=== PATIENT | female | born 1985 | race African-American/Black ===

== ENCOUNTER 2016-12-18 03:54 | Emergency (ER) | payer MEDICAID ==
[~2016-12-18] VITALS: Ht 154.9 cm; Wt 117.0 kg
[~2016-12-18 03:54] MED LIST: MEC25T PO
[2016-12-18 06:12] VITALS: BP 150/95
== END 2016-12-18 07:01 | disposition home or self-care (01) ==
LOC: ER 03:54
DX: M94.0 Chondrocostal junction syndrome [Tietze] (principal); F41.9 Anxiety disorder, unspecified; Z79.899 Other long term (current) drug therapy
CPT/HCPCS: 71020; 81025; 93005

== ENCOUNTER 2016-12-30 14:34 | Emergency (ER) | payer MEDICAID ==
[~2016-12-30] VITALS: Ht 152.4 cm; Wt 127.0 kg
[2016-12-30] MEDS ORDERED: MECLIZINE HCL 25 MG TAB PO ONE (15:30)
[2016-12-30 15:31] LABS: Urine RBC None Seen /hpf (0 - 4)
[2016-12-30] MEDS ORDERED: MECLIZINE HCL 25 MG TAB ONE (15:59)
[2016-12-30 16:05] LABS: Urine Bilirubin Negative (Negative); Urine Blood Negative /uL (Negative); Urine Color Yellow (Yellow); Urine Glucose Normal (Normal); Urine Ketone Negative (Negative); Urine Mucus FEW (None Seen); Urine Nitrite Negative (Negative); Urine Squamous Epithelial Cell FEW /hpf (<5); Urine Urobilinogen Normal (Negative); Urine pH 7.5 (5.0-8.0)
[2016-12-30 16:21] LABS: Basophils # (auto) 0 uL; Basophils % (auto) 0.3 % (0.0-2.0); CONDITION Y; DEFINITIVE SEE PRINTOUT; Eosinophils # (auto) 0.2 uL; Eosinophils % (auto) 2.9 % (0.0-7.0); Hematocrit 38.6 % (36.0-46.0); Hemoglobin 12.5 g/dL (12.2-16.2); Lymphocytes # (auto) 1.6 uL; Lymphocytes % (auto) 22.1 % (10.0-50.0); Mean Corpuscular Hemoglobin 25.5 pg (28.0-32.0); Mean Corpuscular Hgb Conc. 32.4 g/dL (32.0-36.0); Mean Corpuscular Volume 78.5 fL (80.0-100.0); Mean Platelet Volume 8.2 fL (6.9-10.8); Monocytes # (auto) 0.2 uL; Monocytes % (auto) 2.3 % (0.0-12.0); Neutrophils # (auto) 5.3 uL; Neutrophils % (auto) 72.4 % (37.0-80.0); Platelet Count (auto) 415 10^3/uL (140-450); Red Cell Distribution Width 15.6 % (11.8-14.3); White Blood Cell 7.4 10^3/uL (4.4-10.8)
[2016-12-30 16:25] LABS: Albumin 3.5 g/dL (3.4-5.0); BUN/Creatinine Ratio 20.7; Calcium 8.6 mg/dL (8.5-10.1); Potassium 3.7 mmol/L (3.5-5.1)
[2016-12-30 16:27] LABS: Bilirubin, Total 0.3 mg/dL (0.2-1.0); Total Protein 7.1 g/dL (6.4-8.2)
[2016-12-30 18:01] VITALS: BP 140/90
== END 2016-12-30 20:01 | disposition home or self-care (01) ==
LOC: EDBD 14:34 → ER 14:41
DX: N39.0 Urinary tract infection, site not specified (principal); R07.89 Other chest pain
CPT/HCPCS: 36415; 71010; 80053; 81001; 81025; 85025; 99285; J8597

== ENCOUNTER 2017-07-19 11:31 | Emergency (ER) | payer MEDICAID ==
[~2017-07-19] VITALS: Ht 154.9 cm; Wt 130.6 kg
[2017-07-19 11:43] VITALS: BP 137/81
[2017-07-19] MEDS ORDERED: LORazepam 0.5 MG TAB PO ONE (13:30)
== END 2017-07-19 13:56 | disposition home or self-care (01) ==
LOC: ER 11:31
DX: F41.1 Generalized anxiety disorder (principal); Z76.0 Encounter for issue of repeat prescription

== ENCOUNTER 2018-07-10 06:24 | Emergency (ER) | payer MEDICAID ==
[~2018-07-10] VITALS: Ht 154.9 cm; Wt 131.1 kg
[2018-07-10 07:35] VITALS: BP 142/85
== END 2018-07-10 07:58 | disposition home or self-care (01) ==
LOC: ER 06:24
DX: F41.1 Generalized anxiety disorder (principal)